=== PATIENT | female | born 1955 | race American Indian/Alaskan Native ===

== ENCOUNTER 2017-07-20 13:46 | Outpatient (CLI) | payer BC ==
--- NOTE | 2017-07-20 17:09 | XRay Report ---
FINAL REPORT EXAM: XR KNEE 4+V RT HISTORY: KNEE PAIN TECHNIQUE: Four views right knee Comparison: None FINDINGS: Normal bony mineralization. Lateral meniscal chondrocalcinosis. Mild medial meniscal chondrocalcinosis. Medial joint space narrowing. Small suprapatellar bursal effusion. Mild patellofemoral degenerative arthritis. Patellofemoral joint space demonstrates mild irregularity of the medial patellar facet and mild soft tissue swelling. IMPRESSION: Chondrocalcinosis. Mild medial patellofemoral soft tissue swelling and mild irregularity of the visualized articular patella medial facet. Recommend correlation with any trauma. Medial joint space narrowing. MRI right knee may be beneficial to further characterize.
== END 2017-07-20 13:47 | disposition home or self-care (01) ==
LOC: SPVIMAG 13:46
PROVIDERS: ATTEND Orthopaedic Surgery
DX: M17.11 Unilateral primary osteoarthritis, right knee (principal); M11.261 Other chondrocalcinosis, right knee; M79.641 Pain in right hand